=== PATIENT | female | born 1945 | race Caucasian/White ===

== ENCOUNTER 2019-03-04 00:07 | Emergency (ER) | payer MEDICARE ==
[~2019-03-04] VITALS: Ht 167.6 cm; Wt 46.7 kg
--- NOTE | 2019-03-04 00:30 | NUR ---
Patient BIB [facility] from home for c/o hallucinations x6 hrs. A/Ox3. Speech is clear, speaks in complete sentences. Is able to follow commands. Respiratory even and unlabored, no cough no sob. No cardiovascular distress noted. No GI/ distress noted. Patient in bed at lowest position, sr upx2, call light within reach. Fall precautions implemented per protocol.
[2019-03-04 00:45] LABS: BASOPHILS # (AUTO) 0.1 K/uL (0.0-8.0); BASOPHILS % (AUTO) 0.8 % (0.0-2.0); EOSINOPHILS # (AUTO) 0.1 K/uL (0.0-0.7); EOSINOPHILS % (AUTO) 1.8 % (0.0-7.0); HEMATOCRIT 39.9 % (31.2-41.9); HEMOGLOBIN 13.6 g/dL (10.9-14.3); LYMPHOCYTES # (AUTO) 0.9 K/uL (20.0-40.0); LYMPHOCYTES % (AUTO) 11.5 % (20.5-51.5); MEAN CORPUSCULAR HEMOGLOBIN 29.9 uug (24.7-32.8); MEAN CORPUSCULAR HGB CONC 34 g/dL (32.3-35.6); MEAN CORPUSCULAR VOLUME 88.2 fL (75.5-95.3); MONOCYTES # (AUTO) 0.6 K/uL (2.0-10.0); MONOCYTES % (AUTO) 7.3 % (0.0-11.0); NEUTROPHILS # (AUTO) 6.1 K/uL (1.8-8.9); NEUTROPHILS % (AUTO) 78.6 % (38.5-71.5); PLATELET COUNT (AUTO) 346 K/uL (179-408); RED BLOOD CELL COUNT(AUTO) 4.53 MIL/uL (3.63-4.92); WHITE BLOOD COUNT (AUTO) 7.7 K/uL (3.8-11.8)
[2019-03-04 00:59] LABS: ALANINE AMINOTRANSFERASE 11 U/L (14-59); ALKALINE PHOSPHATASE 93 U/L (50-136); ASPARTATE AMINOTRANSFERASE 15 U/L (15-37); BILIRUBIN,DIRECT 0.1 mg/dL (0.0-0.2); BILIRUBIN,TOTAL 0.1 mg/dL (0.2-1.0); CARBON DIOXIDE 27 mmol/L (21-32); CHLORIDE 107 mmol/L (98-107); GLUCOSE 99 mg/dL (74-106); TOTAL PROTEIN, SERUM 6.8 g/dL (6.4-8.2); UREA NITROGEN, BLOOD 13 mg/dL (7-18)
[2019-03-04 01:01] LABS: ACETAMINOPHEN < 2.0 ug/mL (10-30)
[2019-03-04 01:07] LABS: THYROID STIMULATING HORMONE 0.575 mIU/mL (0.358-3.740)
[2019-03-04 01:11] LABS: ETHANOL < 3 MG/DL (0-0)
--- NOTE | 2019-03-04 01:30 | NUR ---
Patient in bed resting, NAD VSS
--- NOTE | 2019-03-04 01:45 | NUR ---
[facility] for [facility], awaiting call back.
--- NOTE | 2019-03-04 01:53 | NUR ---
Dr. Arias on panel call with Dr. Herrmann.
--- NOTE | 2019-03-04 02:00 | NUR ---
According to Dr. Herrmann, patient will benefit from crisis eval.
--- NOTE | 2019-03-04 02:05 | NUR ---
Kye has been contacted for crisis evaluation. He stated he will be on the way.
[2019-03-04 02:06] LABS: *BILIRUBIN,URIN NEGATIVE (NEGATIVE); *COLOR,URINE LIGHT YELLOW (YELLOW); *KETONES,URINE NEGATIVE (NEGATIVE); *UROBILINOGEN,URINE 0.2 E.U./dl (NORMAL); LEUKOCYTE ESTERASE ,URINE 2+ (NEGATIVE); NITRITE, URINE NEGATIVE (NEGATIVE); PH,URINE 8.5 (5.0-8.0); UGLUCOSE NEGATIVE (NEGATIVE)
[2019-03-04 02:09] LABS: *BLOOD, URINE TRACE (NEGATIVE); *CLARITY,URINE HAZY (CLEAR)
[2019-03-04 02:13] LABS: *AMPHETAMINE, URINE NEGATIVE (NEGATIVE); *BARBITURATE, URINE NEGATIVE (NEGATIVE); *CANNABINOID, URINE NEGATIVE (NEGATIVE); *COCCAINE, URINE NEGATIVE (NEGATIVE); *OPIATE, URINE NEGATIVE (NEGATIVE); *PHENCYCLIDINE SCREEN,URINE NEGATIVE (NEGATIVE)
[2019-03-04 02:14] LABS: BACTERIA,URINE FEW /HPF (NONE SEEN); SQUAMOUS EPITHELIAL CELL,UR FEW /HPF (NONE SEEN)
--- NOTE | 2019-03-04 02:31 | NUR ---
Kye Austin, crisis team, here bedside to evaluate patient
--- NOTE | 2019-03-04 03:21 | NUR ---
TOÑO and [employer]PER[employer], art, have come to an agreement that this patient poses no threat or need to be placed on a hold or admitted to a psych unit.Patient discharged to home in stable conditon. Written and verbal after care instructions given. Patient verbalizes understanding of instructions. Son, Joseph, came to pick her up and take her home.
[2019-03-04 03:24] VITALS: BP 150/93
== END 2019-03-04 03:25 | disposition home or self-care (01) ==
LOC: ER 00:10
DX: R44.1 Visual hallucinations (principal); F17.210 Nicotine dependence, cigarettes, uncomplicated
CPT/HCPCS: 36415; 70450; 71045; 80048; 80076; 80307; 81000; 81001; 82140; 83605; 84443; 84484; 85025; 85730; 87040 ×2; 87086; 93005; 99284; G0480 ×2; G0481; 70030-TC; A4663